=== PATIENT | male | born 1950 | race African-American/Black ===

== ENCOUNTER 2016-07-14 20:47 | Emergency (ER) | payer MEDICARE ==
--- NOTE | ~2016-07-14 | CR156 ---
[facility] A Service of [facility] & [facility] RADIOLOGY TEXT RESULTS PATIENT: LAUREL ANSARI LOCATION: [facility] : 51 UNIT #: [id number] AGE: [address]: Jayjay Barber MD SEX: M ORDER DR: [id number] [facility] [address] [place], [place] [address] [id number] E MR#: [id number] #: [id number] NAME: LAUREL ANSARI. : 1950 SEX: M STUDY DATE/TIME: 07/14/2016 20:49 UNIT: [facility] ROOM: STUDY DESCRIPTION: CR Humerus Min 2 View Lt Attending Physician: Jayjay Barber M.D. Ordering Physician: Ed Doctor [id number] [facility] Primary Care Physician: Elder Brown M.D. MEDICAL IMAGING REPORT This report is preliminary unless electronic signature is present EXAM Left humerus two views. HISTORY Arm pain for 1 week. No injury. FINDINGS 2 views left humerus demonstrate normal bone alignment. No fracture or abnormal sclerosis. Mild degenerative changes in the shoulder. No opaque soft tissue foreign body. IMPRESSION No acute findings. Degenerative changes in the left shoulder. Dictated by... Sadiq Livingston M.D. THIS IS AN ELECTRONICALLY VERIFIED REPORT Sadiq Livingston M.D. at 07/16/2016 12:30 PM LAUREN/franki TD: 07/16/2016 07:13 JOB #: [id number] MEDICAL IMAGING REPORT COPY
--- NOTE | ~2016-07-14 | CR132 ---
[facility] A Service of [facility] & [facility] RADIOLOGY TEXT RESULTS PATIENT: LAUREL ANSARI LOCATION: [facility] : 52 UNIT #: [id number] AGE: [address]: Jayjay Barber MD SEX: M ORDER DR: [id number] [facility] [address] [place], [place] [address] [id number] E MR#: [id number] Acc #: [id number] NAME: LAUREL ANSARI. : 1950 SEX: M STUDY DATE/TIME: 07/14/2016 20:46 UNIT: [facility] ROOM: STUDY DESCRIPTION: CR Forearm 2 View Lt Attending Physician: Jayjay Barber M.D. Ordering Physician: [facility] Primary Care Physician: Elder Brown M.D. MEDICAL IMAGING REPORT This report is preliminary unless electronic signature is present EXAM Left forearm 2 views HISTORY Forearm pain for 1 week. No injury. FINDINGS 2 views left forearm demonstrate normal bone alignment. No fracture, or dislocation. Mild arterial calcifications. No opaque soft tissue foreign body. IMPRESSION No acute findings. Dictated by... Sadiq Livingston M.D. THIS IS AN ELECTRONICALLY VERIFIED REPORT Sadiq Livingston M.D. at 07/16/2016 12:29 PM DFL/melissa TD: 07/16/2016 07:11 JOB #: [id number] MEDICAL IMAGING REPORT COPY
[~2016-07-14 20:47] MED LIST: ACIPHEX20 MG PO; ALLEGRA PO; ALLEGRA180 MG PO; AMLODIPINE BESY10 MG PO; ASPIRIN; ASPIRIN PO; ASPIRIN81 M1 PO; AUGMENTIN PO; BENZONATATE PO; CATAFLAM50 MG; CRESTOR40 MG PO; DARVOCET-N 1001 TAB PO; DIOVAN HCT 160-1 TAB PO; FLEXERIL PO; FLUTICASONE; FUROSEMIDE40 MG PO; GABAPENTIN300 M2 PO; GLUCOPHAGE500 MG PO; GLUCOVANCE; GLYBURIDE PO; HYDROCHLOROTH12.5 M1 PO; HYDROCHLOROTH12.5 MG PO; K-DUR20 ME1 PO; LANTUS100 U/ML; LANTUS100 U/ML SUBQ; LIDODERM30 EA TOP; LOPRESSOR100 MG PO; LORTAB 5/500 TA1 TA1 PO; LOTENSIN HCT 101 TAB; LOTENSIN HCT 201 TA1 PO; METFORMIN PO; METOPROLOL SUC100 MG PO; MOBIC PO; NORVASC; NORVASC PO; NOVOLOG100 U/M2 SUBQ; NOVOLOG100 U/ML INJ; NOVOLOG100 U/ML SUBQ; PERCOCET5/325 PO; PLAVIX PO; SKELAXIN PO; SYNTHROID PO; SYNTHROID0.15 MG PO; TESTIM; TOPROL XL PO; TRAMADOL HCL50 M1 PO; ULTRAM PO; VOLTAREN75 MG PO; VYTORIN 10/80 T1 TAB; VYTORIN 10/80 T1 TAB PO; ZESTRIL40 MG PO
[2016-07-14 21:27] LABS: BASOPHIL# 0.1 X10e3 (0-0.3); EOSINOPHIL# 0.2 X10e3 (0-0.7); EOSINOPHIL% 2.4 % (0.0-7.0); HEMATOCRIT 36.5 % (38.0-50.0); HEMOGLOBIN 12.1 gm/dL (13.0-16.0); LYMPHOCYTE# 1.6 X10e3 (1.0-3.5); LYMPHOCYTE% 24.8 % (17.0-45.0); MEAN CELL VOLUME 77.3 FL (83-96); MEAN CORPUSCULAR HEMOGLOBIN 25.6 PG (28-34); MEAN PLATELET VOLUME 7.3 FL (6.5-11.5); MONOCYTE# 0.5 X10e3 (0-1.0); MONOCYTE% 7.2 % (3.0-12.0); NEUTROPHIL# 4.2 X10e3 (1.5-7.1); NEUTROPHIL% 64.6 % (40-75); PLATELET COUNT 320 X10e3 (140-420); RED BLOOD COUNT 4.72 X10e (3.90-5.60); RED CELL DISTRIBUTION WIDTH 21.5 % (11.0-15.5); WHITE BLOOD COUNT 6.5 X10e3 (4.0-10.5)
[2016-07-14 21:33] LABS: DIFF IND NO
[2016-07-14 21:57] LABS: ALBUMIN SERUM 2.8 g/dL (3.5-5.0); ALKALINE PHOSPHATASE 81 U/L (32-92); ALT (SGPT) 36 U/L (10-40); AST (SGOT) 28 U/L (10-42); BILIRUBIN, DIRECT <0.1 mg/dL (0.0-0.2); BILIRUBIN,INDIRECT 0.3 mg/dL (0.0-0.9); BILIRUBIN,TOTAL 0.4 mg/dL (0.2-2.0); BLOOD UREA NITROGEN 17 mg/dL (9-23); CALCIUM SERUM 8.8 mg/dL (8.4-10.2); CARBON DIOXIDE 24 mmol/L (22-31); CHLORIDE 102 mmol/L (100-111); GLOM FILT RATE Estimated ABOVE60 mL/min (>60); GLUCOSE FASTING 168 mg/dL (70-110); POTASSIUM 4.4 mmol/L (3.5-5.1); PROTEIN TOTAL SERUM 6.8 g/dL (6.0-8.3); SODIUM 133 mmol/L (135-145)
[2016-07-14 22:11] LABS: POC - CKMB 3.9 ng/mL (0.0-7.9); POC - TROPONIN <0.05 ng/mL (<=0.05)
[2016-07-14 23:15] LABS: POC - CKMB 3.5 ng/mL (0.0-7.9); POC - TROPONIN <0.05 ng/mL (<=0.05)
== END 2016-07-15 00:50 | disposition home or self-care (01) ==
LOC: CED 20:47
PROVIDERS: Emergency Medicine
DX: M79.602 Pain in left arm (principal); I25.10 Atherosclerotic heart disease of native coronary artery without angina pectoris; I10 Essential (primary) hypertension; E11.9 Type 2 diabetes mellitus without complications; Z86.73 Personal history of transient ischemic attack (TIA), and cerebral infarction without residual deficits
CPT/HCPCS: 36415; 73060; 73090; 80048; 80076; 82553; 84484; 85025; 96374; 96376; 99284; J1170